=== PATIENT | female | born 2005 | race Caucasian/White ===

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

== ENCOUNTER 2023-12-02 00:30 | Emergency (ER) | payer MEDICAID, OTHER ==
[~2023-12-02] VITALS: Ht 167.6 cm; Wt 65.5 kg
[2023-12-02 01:53] VITALS: BP 126/54; PULSE 77; RESP 16; TEMP 97.3; O2SAT 98
== END 2023-12-02 03:52 | disposition home or self-care (01) ==
LOC: EMS 00:30
DX: S80.02XA Contusion of left knee, initial encounter (principal); M23.92 Unspecified internal derangement of left knee; W22.8XXA Striking against or struck by other objects, initial encounter; Y93.01 Activity, walking, marching and hiking; Y92.89 Other specified places as the place of occurrence of the external cause; Y99.8 Other external cause status
CPT/HCPCS: 99283